=== PATIENT | female | born 1960 | race Two or more races ===

== ENCOUNTER 2019-11-24 08:08 | Outpatient (CLI) | payer OTHER | END 2019-11-24 08:10 | disposition home or self-care (01) | LOC: SONOGRAMA 08:08 | DX: E04.2 Nontoxic multinodular goiter (principal) ==

== ENCOUNTER 2020-04-16 07:56 | Outpatient (CLI) | payer OTHER | END 2020-04-16 07:58 | disposition home or self-care (01) | LOC: SONOGRAMA 07:56 | PROVIDERS: ATTEND Pathology Anatomic Pathology & Clinical Pathology | DX: E04.2 Nontoxic multinodular goiter (principal) ==

== ENCOUNTER → 2021-09-26 09:40 | Outpatient (CLI) | payer OTHER | END | disposition home or self-care (01) | LOC: NUCLEAR 09:40 | PROVIDERS: ATTEND General Practice | DX: I35.0 Nonrheumatic aortic (valve) stenosis (principal) ==